=== PATIENT | male | born 1960 | race Asian ===

== ENCOUNTER 2025-03-14 10:00 | Emergency (ER) | payer OTHER, SELFPAY ==
[2025-03-14 10:02] VITALS: BP 159/96
--- NOTE | 2025-03-14 10:22 | ED.SKININJ ---
HPI-Injury
General
Chief Complaint: Skin Surface Trauma
Source: patient
Exam Limitations: none
Time Seen by Provider: 03/14/25 10:02
History of Present Illness-Injury
Initial Injury comments:
65-year-old male with history of Parkinson's presents after mechanical fall. He lost his balance as his feet got caught and he fell backwards. He pulled his walker on top of him. The walker hit him in the head. They noted a laceration to the
scalp. There is a deep brain stimulator near the site of the laceration. He is not anticoagulated. No no loss of conscious. No neck or back pain. No arm or leg pain from the fall. No other complaints at this time
Phy Exam
Physical Exam
Physical Exam:
General: Well-appearing male no acute respiratory distress
HEENT normocephalic 1.5 cm laceration right superior scalp not currently bleeding pupils equal round nonreactive to light blunted affect
Heart: Regular rate and rhythm
Lungs: Clear
Musculoskeletal exam: Spine is nontender the ribs are nontender good range of motion to the upper and lower extremities
Neurologic exam: Somewhat rigid but alert oriented conversing appropriately
Course
Orders/Labs/Results
Orders:
Orders
03/14/25 10:22
CT Head W/o Iv Contrast Urgent
Comment:
Reason For Exam: fall
Vital Signs
Initial and Last Documented VS:
Initial Vital Signs
Temp Pulse Resp BP Pulse Ox
98.9 F 65 17 159/96 98
03/14/25 10:02 03/14/25 10:02 03/14/25 10:02 03/14/25 10:02 03/14/25 10:02
Last Documented Vital Signs
Temp Pulse Resp BP Pulse Ox
98.9 F 65 17 159/96 98
03/14/25 10:02 03/14/25 10:02 03/14/25 10:02 03/14/25 10:02 08/31/25 10:23
MDM/Problems Addressed
Differential Diagnosis Includes:
Fall with head strike. There is a laceration to the scalp that will require sutures. CT of the head pending to evaluate for fracture integrity of the deep brain stimulator and any intracranial hemorrhage.
*Pulse Oximetry
SaO2: 98
Oxygen Mode of Delivery: Room air
Patient hypoxic: no
*Critical Care Note
Total Time (30-74mins, 75-104mins- exclusive of procedures): Not Applicable
Update Note
Update Note:
CT of the head was negative for acute finding. The wound was cleansed with saline anesthetized 1% lidocaine with epinephrine and closed in a simple erupted fashion using 5-0 Prolene sutures. 3 sutures were required to do so. Wound care
instructions were given. Patient reassured. Stable for discharge
ED Attending Note
-
Portions of this chart may have been created with voice recognition software.� Occasional wrong word or��sound alike� substitutions may have occurred due to the inherent limitations of voice recognition software.
Discharge Plan
Departure
Patient Disposition: Home (Routine Discharge)
Date of Disposition: 03/14/25
Time of Disposition: 11:26
Patient with high blood pressure during this ER visit?: No
Discharge Problem:
Laceration
Instructions: Laceration Repair With Stitches (DC)
Prescriptions:
No Action
carbidopa-levodopa 25-100 mg Tablet Extended Release
2 tab PO QID
entacapone 200 mg Tablet
200 mg PO QID
ropinirole 2 mg Tablet
2 mg PO BID
losartan 25 mg Tablet
25 mg PO DAILY
cholecalciferol (vitamin D3) [Vitamin D3] 50 mcg (2,000 unit) Tablet
100 mcg PO DAILY
Referrals:
Atif Chirinos MD [Family Provider, Internal Medicine]
Activity Restrictions/Additional Instructions:
Have sutures removed in about 7 days. Keep clean otherwise. Return if needed
Interventions
Interventions:
*Risk Screen - Suicide Last Done: 03/14/25 10:02
*General Assessment Last Done: 03/14/25 10:02
*Neglect/Abuse Screening Last Done: 03/14/25 10:02
*ED- Fall Risk Assessment Last Done: 03/14/25 10:02
*ED COVID-19 Vaccine History Last Done: 03/14/25 10:02
ED-Skin Assessment Last Done: 03/14/25 10:02
Discharge Date and Time
Print Language: MACEDONIAN
== END 2025-03-14 11:54 | disposition home or self-care (01) ==
LOC: EMR 10:00
PROVIDERS: EMERGENCY PHYSICIAN Emergency Medicine; FAMILY PHYSICIAN Internal Medicine
DX: S01.01XA Laceration without foreign body of scalp, initial encounter (principal); G20.A1 Parkinson's disease without dyskinesia, without mention of fluctuations; Z96.82 Presence of neurostimulator; W18.39XA Other fall on same level, initial encounter; W20.8XXA Other cause of strike by thrown, projected or falling object, initial encounter
CPT/HCPCS: 99284; 12001; 70450